=== PATIENT | male | born 2000 | race Caucasian/White ===

== ENCOUNTER 2023-12-05 22:50 | Emergency (ER) | payer MEDICAID, OTHER ==
[~2023-12-05] VITALS: Ht 182.9 cm; Wt 102.0 kg
[2023-12-06] MEDS ORDERED: AUG875T PO (00:59)
[2023-12-06] MEDS: TETANUS-DIPTH-ACEL PERTUSSIS 0.5ML SYR Tdap IM ONE (01:03)
[2023-12-06 01:24] VITALS: BP 135/85; PULSE 75; RESP 17; TEMP 97.6; O2SAT 97
== END 2023-12-06 02:09 | disposition home or self-care (01) ==
LOC: ER 22:50
DX: S61.217A Laceration without foreign body of left little finger without damage to nail, initial encounter (principal); S00.212A Abrasion of left eyelid and periocular area, initial encounter; Z79.899 Other long term (current) drug therapy; W54.0XXA Bitten by dog, initial encounter; Y93.89 Activity, other specified; Y92.89 Other specified places as the place of occurrence of the external cause; Y99.8 Other external cause status
CPT/HCPCS: 12002; 90471; 90715